=== PATIENT | male | born 1965 | race Caucasian/White ===

== ENCOUNTER 2016-12-15 20:56 | Emergency (ER) | payer SELFPAY ==
[~2016-12-15] VITALS: Ht 154.9 cm; Wt 50.0 kg
[2016-12-15 21:07] VITALS: BP 130/60
== END 2016-12-16 05:31 | disposition left against medical advice (07) ==
LOC: ER 20:57
DX: M79.602 Pain in left arm (principal); R20.2 Paresthesia of skin

== ENCOUNTER 2016-12-20 17:56 | Emergency (ER) | payer SELFPAY ==
[~2016-12-20] VITALS: Ht 154.9 cm; Wt 49.0 kg
[2016-12-20] MEDS ORDERED: KETOROLAC 60MG/2ML VIAL IM ONE (19:30)
[2016-12-20 20:12] VITALS: BP 144/74
== END 2016-12-20 20:12 | disposition home or self-care (01) ==
LOC: ER 18:00
DX: M25.532 Pain in left wrist (principal)
CPT/HCPCS: 96372; 99283; J1885